=== PATIENT | female | born 1965 | race African-American/Black ===

== ENCOUNTER 2021-06-24 19:23 | Inpatient (IN) | payer OTHER ==
[~2021-06-24] VITALS: Ht 162.6 cm; Wt 84.1 kg
[2021-06-24] MEDS ORDERED: LABETALOL 5MG/ML SYR 20 MG/4 ML SYRINGE IV PRN ×2 (19:45)
[2021-06-24] MEDS ORDERED: SODIUM CHLORIDE 0.9% 1,000 ML IV ONE (20:30)
[2021-06-24] MEDS ORDERED: ONDANSETRON HCL 4MG/2ML INJ IV ONE (20:30)
[2021-06-24 20:36] LABS: BASOPHILS % 0.9 % (0.0-2.0); EOSINOPHILS % 0.4 % (0.0-5.0); HEMATOCRIT. 41.4 % (36.0-48.0); HEMOGLOBIN. 13.9 g/dL (12.0-16.0); LYMPHOCYTES % 22.5 % (20.0-50.0); MEAN CORPUSCULAR HEMOGLOBIN 28.6 pg (28.0-32.0); MEAN CORPUSCULAR VOLUME 85.2 fL (81.0-99.0); MONOCYTES % 3.9 % (2.0-8.0); NEUTROPHILS % 72.3 % (40.0-76.0); PLATELET 174 x1000/uL (130-400); RED BLOOD CELL COUNT 4.85 mill/uL (4.2-5.4); RED CELL DISTRIBUTION WIDTH 13.3 % (11.6-14.6)
[2021-06-24 20:44] LABS: CHLORIDE 103 mEq/L (98-107)
[2021-06-24 20:48] LABS: ETHANOL BLOOD < 10 mg/dL
[2021-06-24 20:51] LABS: LDL CHOLESTEROL 74 mg/dL (5-100)
[2021-06-24] MEDS ORDERED: METOCLOPRAMIDE HCL 10MG/2ML VIAL IV ONE (22:30)
[2021-06-24 22:57] LABS: CLARITY URINE CLEAR (CLEAR); COLOR URINE YELLOW (YELLOW); KETONES URINE 3+ (NEGATIVE); LEUKOCYTE ESTERASE URINE NEGATIVE (NEGATIVE); NITRITE URINE NEGATIVE (NEGATIVE); OCCULT BLOOD URINE NEGATIVE (NEGATIVE); PH URINE 7.5 (4.5-8.0); PROTEIN URINE NEGATIVE (NEGATIVE); SPECIFIC GRAVITY URINE 1.054 (1.005-1.030)
[2021-06-24] MEDS ORDERED: ACETAMINOPHEN 325MG TABLET PO PRN (23:00)
[2021-06-24] MEDS ORDERED: HYDROMORPHONE HCL/PF 2MG/ML CPJ IV PRN (23:00)
[2021-06-24] MEDS ORDERED: DOCUSATE SODIUM 100MG CAPSULE PO PRN (23:00)
[2021-06-24] MEDS ORDERED: CLONIDINE 0.1MG TABLET PO PRN (23:00)
[2021-06-24] MEDS ORDERED: ONDANSETRON HCL 4MG/2ML INJ IV PRN (23:00)
[2021-06-24 23:07] LABS: *AMPHETAMINES SCREEN URINE NEGATIVE (NEGATIVE); *BARBITURATES SCREEN URINE NEGATIVE (NEGATIVE); *BENZODIAZEPINES SCREEN URINE NEGATIVE (NEGATIVE); *COCAINE SCREEN URINE NEGATIVE (NEGATIVE)
[2021-06-24 23:08] LABS: CANNABINOID URINE SCREEN NEGATIVE (NEGATIVE); METHADONE URINE SCREEN NEGATIVE (NEGATIVE); OPIATES URINE SCREEN NEGATIVE (NEGATIVE); PHENCYCLIDINE URINE SCREEN NEGATIVE (NEGATIVE)
[2021-06-24] MEDS ORDERED: NALOXONE HCL 0.4MG/ML VIAL IV PRN (23:15)
[2021-06-24] MEDS ORDERED: IOHEXOL-350 100 ML BOTTLE ONE (23:31)
[2021-06-25] MEDS ORDERED: DEXTROSE 50% WATER 50ML SYRINGE IV PRN (01:15)
[2021-06-25 01:42] VITALS: BP 144/71
[2021-06-25] MEDS: DEXT 5%/0.45% NACL 1000ML 1,000 ML IV SCH ×2 (02:11→13:20)
[2021-06-25 04:00] VITALS: BP 149/84
[2021-06-25] MEDS: HYDROCODONE/ACETAMINOPHEN 5/325MG TABLET PO PRN ×2 (05:32→05:35)
[2021-06-25] MEDS ORDERED: METF-414 MT (05:50)
[2021-06-25] MEDS ORDERED: LISI20TA31 MT (05:50)
[2021-06-25] MEDS: BLOOD SUGAR DIAGNOSTIC STRIP TEST SCH ×4 (06:46→21:08)
[2021-06-25] MEDS: INSULIN LISPRO 100 UNITS/ML SUBCUT SCH ×4 (06:48→21:35)
[2021-06-25 07:56] LABS: CHLORIDE 108 mEq/L (98-107)
[2021-06-25 08:00] VITALS: BP 117/72
[2021-06-25 08:01] LABS: BASOPHILS % 0.3 % (0.0-2.0); EOSINOPHILS % 0.1 % (0.0-5.0); HEMATOCRIT. 41.5 % (36.0-48.0); LYMPHOCYTES % 22.2 % (20.0-50.0); MEAN CORPUSCULAR HEMOGLOBIN 28.9 pg (28.0-32.0); MEAN CORPUSCULAR VOLUME 85.9 fL (81.0-99.0); MONOCYTES % 6.7 % (2.0-8.0); NEUTROPHILS % 70.7 % (40.0-76.0); PLATELET 204 x1000/uL (130-400); RED BLOOD CELL COUNT 4.83 mill/uL (4.2-5.4); RED CELL DISTRIBUTION WIDTH 13.3 % (11.6-14.6)
[2021-06-25 08:05] LABS: LDL CHOLESTEROL 75 mg/dL (5-100)
[2021-06-25 08:07] LABS: HDL CHOLESTEROL 67 mg/dL (40-59)
[2021-06-25] MEDS: AMLODIPINE 10MG TABLET PO SCH ×2 (09:00→10:19)
[2021-06-25] MEDS: ASPIRIN 81MG EC TABLET PO SCH (10:19)
[2021-06-25 12:00] VITALS: BP 116/65
[2021-06-25] MEDS: LISINOPRIL 20MG TABLET PO SCH (13:24)
[2021-06-25 16:00] VITALS: BP 125/69
[2021-06-25] MEDS: METFORMIN HCL 500MG TABLET PO SCH (19:00)
[2021-06-25 20:00] VITALS: BP 114/62
[2021-06-25] MEDS ORDERED: ATORVASTATIN CALCIUM 20MG TABLET PO SCH (21:00)
[2021-06-26] VITALS: BP 111/64
[2021-06-26] MEDS: DEXT 5%/0.45% NACL 1000ML 1,000 ML IV SCH (02:49)
[2021-06-26 04:00] VITALS: BP 120/63
[2021-06-26] MEDS: HYDROCODONE/ACETAMINOPHEN 5/325MG TABLET PO PRN (04:56)
[2021-06-26] MEDS: BLOOD SUGAR DIAGNOSTIC STRIP TEST SCH ×2 (07:15→11:56)
[2021-06-26 08:00] VITALS: BP 125/76
[2021-06-26] MEDS: AMLODIPINE 10MG TABLET PO SCH (10:16)
[2021-06-26] MEDS: ASPIRIN 81MG EC TABLET PO SCH (10:16)
[2021-06-26] MEDS: METFORMIN HCL 500MG TABLET PO SCH (10:16)
[2021-06-26] MEDS: LISINOPRIL 20MG TABLET PO SCH (10:17)
[2021-06-26] MEDS: INSULIN LISPRO 100 UNITS/ML SUBCUT SCH ×2 (10:18→12:02)
[2021-06-26 11:09] VITALS: BP_SYST 100; BP_SYST 94; BP_SYST 97; BP_DIAS 53; BP_DIAS 62; BP_DIAS 63
[2021-06-26 12:00] VITALS: BP 141/78
[2021-06-26 12:26] VITALS: BP 125/76
== END 2021-06-26 14:35 | disposition home or self-care (01) | DRG 69 ==
LOC: ER 19:23 → 8WST 22:19 → EDBEDREQSVC 22:21 → EDBEDREQTM 22:21 → EDBEDREQ 22:21 → ENRESERV 23:42
PROVIDERS: ADMIT Hospitalist; ATTEND Hospitalist
PROC: 4A10X4Z Monitoring of Central Nervous Electrical Activity, External Approach (ICD-10-PCS; principal; 2021-06-26)
DX: G45.9 Transient cerebral ischemic attack, unspecified (principal); I10 Essential (primary) hypertension; I16.0 Hypertensive urgency; R06.1 Stridor; E11.9 Type 2 diabetes mellitus without complications; Z82.49 Family history of ischemic heart disease and other diseases of the circulatory system
CPT/HCPCS: 36415; 70496; 70498; 70551; 71045; 80053; 80061; 80305; 80320; 81003; 82962; 83036; 83721; 84484; 85025; 92610; 93005; 95816; 97162; 99291; C1893; J1815; J2405; J2765; J3490; J7030; Q9967; G0480